=== PATIENT | male | born 1970 | race Two or more races ===

== ENCOUNTER 2023-09-15 21:42 | Emergency (ER) | payer OTHER ==
[~2023-09-15] VITALS: Ht 172.7 cm; Wt 93.0 kg
[2023-09-15 22:13] LABS: HEMATOCRIT 44.2 % (39.0-48.0); HEMOGLOBIN 14.9 g/dL (13-16.00); MEAN CORPUSCULAR HEMOGLOBIN 28.7 pg (27.00-32.0); MEAN CORPUSCULAR HGB CONC 33.8 g/dl (32.0-36.0); PLATELET COUNT 284 K/uL (150-450); RED CELL DISTRIBUTION WIDTH 14.4 % (11.5-14.5)
== END 2023-09-15 23:54 | disposition home or self-care (01) ==
LOC: ER 21:42
PROVIDERS: Emergency Medicine
DX: R07.89 Other chest pain (principal)

== ENCOUNTER → 2025-03-17 | Emergency (ER) | payer OTHER ==
[~2025-03-17] VITALS: Ht 172.7 cm; Wt 90.7 kg
[~2025-03-17] MED LIST: CEFTRIAXONE SODIUM 2,000 MG VIAL IV STA; CEFTRIAXONE SODIUM 2,000 MG VIAL ONE; KETOROLAC TROMETHAMINE 15 MG VIAL IV STA; KETOROLAC TROMETHAMINE 30 MG VIAL ONE
== END | disposition left against medical advice (07) ==
LOC: ER 15:33
DX: L02.11 Cutaneous abscess of neck (principal)